=== PATIENT | female | born 1965 ===

== ENCOUNTER 2017-11-17 07:41 | Day surgery (SDC) | payer OTHER ==
[2017-11-17 08:31] VITALS: O2SAT 100
[2017-11-17] MEDS ORDERED: Lactated Ringer's 500 ML IV ONE ×2 (09:43)
--- NOTE | 2017-11-17 09:45 | CP.SDSHP ---
Same Day Surgery H & P - History Proposed Procedure: COLONSCOPY Pre-Op Diagnosis: SEE NOTES - Previous Medical/Surgical History Cardiac: Hypertension Endocrine/Metabolic: Other Neuro: Backaches Misc: Other - Allergies Allergies: Allergies No Known Allergies Allergy (Verified 11/13/17 11:52) - Physical Exam General Appearance: N Vital Signs: Vital Signs 11/17/17 07:50 Temperature 97.8 F Pulse Rate 71 Respiratory 19 Rate Blood Pressure 119/66 O2 Sat by Pulse 100 Oximetry Mental Status: Alert & Oriented x3 Neuro: WNL Lungs: WNL GI: WNL - {Optional Preform as Required} Breast: WNL Abdomen: Other Rectal: Other Integument: WNL : WNL Ortho: WNL ENT: WNL - Impression Pt. Evaluated Today:Candidate for Anesthesia & Procedure: Yes - Date & Time Time: 09:45 Short Stay Discharge - Short Stay Discharge Admitting Diagnosis/Reason for Visit: ENCOUNTER FOR SCREENING FOR MALIGNANT NEOPLASM OF Disposition: HOME/ ROUTINE
[2017-11-17] MEDS ORDERED: Propofol 10 mg/ml Inj (20 ML) ONE (09:46)
[2017-11-17] MEDS ORDERED: Lidocaine Hydrochloride 5 ML INJ ONE (09:46)
[2017-11-17] MEDS ORDERED: Belladonna-Phenobarbital PO ONE (10:00)
[2017-11-17 11:14] VITALS: BP 113/74; PULSE 63; RESP 14; TEMP 98
== END 2017-11-17 11:05 | disposition home or self-care (01) ==
LOC: C.ENDO 07:41
PROVIDERS: ATTEND Specialist
DX: Z12.11 Encounter for screening for malignant neoplasm of colon (principal); I10 Essential (primary) hypertension; K57.30 Diverticulosis of large intestine without perforation or abscess without bleeding; K58.9 Irritable bowel syndrome, unspecified
CPT/HCPCS: 45378; 84703; 88305; J2704; J7120

== ENCOUNTER 2017-11-24 07:07 | Day surgery (SDC) | payer OTHER ==
[2017-11-24] MEDS ORDERED: Propofol 10 mg/ml Inj (20 ML) ONE (08:13)
[2017-11-24] MEDS ORDERED: Lactated Ringer's 1,000 ML IV ONE (08:20)
--- NOTE | 2017-11-24 08:22 | CP.SDSHP ---
Same Day Surgery H & P - History Proposed Procedure: EGD Pre-Op Diagnosis: NOW - Previous Medical/Surgical History Cardiac: Hypertension, Other Misc: Other Pain: 4.Moderate Pain - Allergies Allergies: Allergies iodine Allergy (Verified 11/24/17 07:21) RASH nut - unspecified Allergy (Verified 11/24/17 07:21) RASH strawberry Allergy (Verified 11/24/17 07:21) RASH wheat Allergy (Verified 11/24/17 07:21) RASH - Physical Exam General Appearance: N Vital Signs: Vital Signs 11/24/17 07:26 Temperature 97.8 F Pulse Rate 79 Respiratory 19 Rate Blood Pressure 105/61 O2 Sat by Pulse 100 Oximetry Mental Status: Alert & Oriented x3 Neuro: WNL Lungs: WNL GI: Other - {Optional Preform as Required} Breast: WNL Abdomen: Other Rectal: Other Integument: WNL : WNL Ortho: WNL ENT: WNL - Impression Pt. Evaluated Today:Candidate for Anesthesia & Procedure: Yes - Date & Time Time: 08:22 Short Stay Discharge - Short Stay Discharge Admitting Diagnosis/Reason for Visit: DYSPEPSIA, ABDOMINAL PAIN Disposition: HOME/ ROUTINE
[2017-11-24] MEDS ORDERED: Belladonna-Phenobarbital PO STA (08:23)
[2017-11-24 08:56] VITALS: RESP 13; TEMP 98
[2017-11-24 09:16] VITALS: BP 108/67; PULSE 64; O2SAT 100
== END 2017-11-24 09:15 | disposition home or self-care (01) ==
LOC: C.ENDO 07:07
PROVIDERS: ATTEND Specialist
DX: K29.70 Gastritis, unspecified, without bleeding (principal); K20.9 Esophagitis, unspecified
CPT/HCPCS: 43239; 84703; 88305; 88342; J2704; J3010; J7120

== ENCOUNTER 2018-07-13 08:23 | Outpatient (CLI) | payer OTHER | END 2018-07-13 08:24 | disposition home or self-care (01) | LOC: C.LAB 08:23 | DX: I77.6 Arteritis, unspecified (principal); E88.9 Metabolic disorder, unspecified ==

== ENCOUNTER 2018-09-14 13:31 | Outpatient (CLI) | payer OTHER | END 2018-09-14 13:32 | disposition home or self-care (01) | LOC: C.MAMMO 13:31 | DX: Z12.31 Encounter for screening mammogram for malignant neoplasm of breast (principal) ==